=== PATIENT | female | born 1960 | race Hispanic/Latino ===

== ENCOUNTER 2018-10-18 08:52 | Emergency (ER) | payer OTHER ==
[2018-10-18 10:02] LABS: Absolute Lymphocytes (CBC) 2.1 K/uL (0.7-4.9); Basophils % 0.3 % (0-1.3); Eosinophils % 0.8 % (0-4.4); Hematocrit 42.2 % (36.0-45.0); Lymphocytes % 19.5 % (15.3-44.8); MPV 8.7 fL (7.6-11.3); Monocytes % 3.1 % (3.3-12.3); RBC Red Blood Cell Count 4.49 M/uL (3.86-4.86)
[2018-10-18] MEDS ORDERED: NA CHLORIDE 0.9% 1,000 ML ONE (10:03)
[2018-10-18 10:11] LABS: Protime INR 1.04
[2018-10-18 10:29] LABS: ALT/SGPT 43 U/L (12-78); AST/SGOT 48 U/L (15-37); Albumin 3.9 g/dL (3.4-5.0); Alkaline Phosphatase 118 U/L (45-117); BUN Blood Urea Nitrogen 11 mg/dL (7-18); Bicarbonate 23 mmol/L (21-32); Bilirubin Direct 0.3 mg/dL (0-0.2); Bilirubin Total 0.7 mg/dL (0.2-1.0); Glucose Level 107 mg/dL (74-106); Magnesium 2.4 mg/dL (1.8-2.4); NT PRO-BNP 11 pg/mL (<125); Potassium 3.9 mmol/L (3.5-5.1); Protein, Total 7.6 g/dL (6.4-8.2); Sodium Level 143 mmol/L (136-145); Troponin (Emerg Dept Use Only) < 0.02 ng/mL (0.0-0.045)
--- NOTE | 2018-10-18 10:54 | RAD REPORT ---
EXAM DESCRIPTION: CTAbdomen Pelvis W Contrast - 10/18/2018 10:44 am CLINICAL HISTORY: Abdominal pain. EPIGASTRIC PAIN COMPARISON: Abdomen Pelvis W Contrast dated 10/17/2018 TECHNIQUE: Biphasic CT imaging of the abdomen and pelvis was performed with 100 ml non-ionic IV cont rast. All CT scans are performed using dose optimization technique as appropriate and may include automated exposure control or mA/KV adjustment according to patient size. FINDINGS: Emphysematous changes are present in the lung bases. The liver, spleen, pancreas, adrenal glands and kidneys are within normal limits. Small stones are pr esent in the gallbladder. No bowel obstruction, free air, free fluid or abscess. Metallic clips in the right colon presumably r elated to recent intervention in this region. The appendix is not identified as a discrete structure, however, no secondary findings of appendicitis are identified. No evidence of significant lymphade nopathy. No suspicious bony findings. IMPRESSION: No acute intra-abdominal or pelvic finding.
--- NOTE | 2018-10-18 11:26 | RAD REPORT ---
EXAM DESCRIPTION: Kacey Single View10/18/2018 9:44 am CLINICAL HISTORY: Chest pain COMPARISON: October 17, 2017 FINDINGS: Lungs are hyperaerated. The lungs appear clear of acute infiltrate. The heart is normal size IMPRESSION: No acute abnormalities displayed
--- NOTE | 2018-10-18 13:52 | ER ---
Nurse's Notes [facility] Name: Carmencita Lomas Age: 58 yrs Sex: Female : 1960 Arrival Date: 10/18/2018 Time: 08:53 Bed 2 Private MD: Diagnosis: Chest pain, unspecified Presentation: 10/18 09:02 Presenting complaint: Patient states: Sent from Dr Bey's office for chest pain after ph EGD today, also reports having colonoscopy yesterday, c/o pain in epigastric area, describes as pressure 2/10, denies SOB or nausea. Transition of care: patient was not received from another setting of care. Onset of symptoms was October 18, 2018. Risk Assessment: Do you want to hurt yourself or someone else? Patient reports no desire to harm self or others. Initial Sepsis Screen: Does the patient meet any 2 criteria? No. Patient's initial sepsis screen is negative. Does the patient have a suspected source of infection? No. Patient's initial sepsis screen is negative. Care prior to arrival: IV initiated. 22 GA, in the right hand. 09:02 Method Of Arrival: Wheelchair ph 09:02 Acuity: RAMIRZE 3 ph Historical: - Allergies: 09:10 No Known Allergies; ph - PMHx: 09:10 Chronic pain; Fibromyalgia; ph - Immunization history:: Adult Immunizations. - Social history:: Smoking status: . - Ebola Screening: : Patient denies travel to an Ebola-affected area in the 21 days before illness onset. Screenin:57 Abuse screen: Denies threats or abuse. Nutritional screening: No deficits noted. tw2 Tuberculosis screening: No symptoms or risk factors identified. Fall Risk None identified. Assessment: 09:00 General: Appears in no apparent distress. Behavior is calm, cooperative, appropriate tw2 for age. Pain: Complains of pain in chest Pain does not radiate. Pain began 1 hour ago. Neuro: Level of Consciousness is awake, alert, obeys commands, Oriented to person, place, time, situation. Cardiovascular: Reports chest pain, Heart tones S1 S2 Patient's skin is warm and dry. Respiratory: Airway is patent Respiratory effort is even, unlabored, Breath sounds are clear bilaterally. GI: No signs and/or symptoms were reported involving the gastrointestinal system. : No signs and/or symptoms were reported regarding the genitourinary system. EENT: No signs and/or symptoms were reported regarding the EENT system. Derm: No signs and/or symptoms reported regarding the dermatologic system. Musculoskeletal: Range of motion: intact in all extremities. 10:14 Reassessment: Patient and/or family updated on plan of care and expected duration. Pain aj1 level reassessed. Patient states that she would like something to drink. Notified Sujata Martinez NP who said to keep patient NPO at this tiem. General: Appears in no apparent distress. comfortable, Behavior is calm, cooperative, appropriate for age. Pain: Denies pain. Neuro: Level of Consciousness is awake, alert, obeys commands, Oriented to person, place, time, situation. Cardiovascular: Reports chest pain, that has now resolved Heart tones S1 S2 present Patient's skin is warm and dry. Rhythm is sinus rhythm. Respiratory: Airway is patent Respiratory effort is even, unlabored, Respiratory pattern is regular, symmetrical, Breath sounds are clear bilaterally. GI: No signs and/or symptoms were reported involving the gastrointestinal system. : No signs and/or symptoms were reported regarding the genitourinary system. EENT: No signs and/or symptoms were reported regarding the EENT system. Derm: No signs and/or symptoms reported regarding the dermatologic system. Skin is pink, warm \T\ dry. normal. Musculoskeletal: No signs and/or symptoms reported regarding the musculoskeletal system. Circulation, motion, and sensation intact. 11:15 Reassessment: Patient appears in no apparent distress at this time. No changes from aj1 previously documented assessment. Patient and/or family updated on plan of care and expected duration. Pain level reassessed. Patient is alert, oriented x 3, equal unlabored respirations, skin warm/dry/pink. 12:18 Reassessment: Patient appears in no apparent distress at this time. No changes from aj1 previously documented assessment. Patient and/or family updated on plan of care and expected duration. Pain level reassessed. Patient is alert, oriented x 3, equal unlabored respirations, skin warm/dry/pink. 12:38 Reassessment: Patient reports that she is hungry and needs something to eat because she aj1 hasn't eaten anything solid in the past 3 days. Patient was provided a turkey sandwich. 13:05 Reassessment: Patient appears in no apparent distress at this time. No changes from aj1 previously documented assessment. Patient and/or family updated on plan of care and expected duration. Pain level reassessed. Patient is alert, oriented x 3, equal unlabored respirations, skin warm/dry/pink. Patient's repeat labs drawn by RUSTY Bertrand. 14:12 Reassessment: Patient appears in no apparent distress at this time. No changes from aj1 previously documented assessment. Patient and/or family updated on plan of care and expected duration. Pain level reassessed. Patient is alert, oriented x 3, equal unlabored respirations, skin warm/dry/pink. Vital Signs: 09:04 BP 112 / 73; Pulse 78; Resp 18; Pulse Ox 93% on R/A; Weight 66.22 kg; Height 5 ft. 4 ph in. (162.56 cm); Pain 2/10; 10:00 Pulse Ox 89% on R/A; tw2 10:15 BP 104 / 51; Pulse 68; Resp 18; Pulse Ox 99% on 2 lpm NC; aj1 11:15 BP 109 / 67; Pulse 67; Resp 18; Pulse Ox 95% on 2 lpm NC; aj1 12:19 BP 107 / 68; Pulse 71; Resp 18; Pulse Ox 96% on 2 lpm NC; aj1 13:36 BP 109 / 69; Pulse 69; Resp 16; Pulse Ox 98% on 2 lpm NC; aj1 14:13 BP 105 / 62; Pulse 88; Resp 18; Pulse Ox 97% on R/A; aj1 09:04 Body Mass Index 25.06 (66.22 kg, 162.56 cm) ph 10:00 pt placed on 2 l nc at this time. tw2 ED Course: 08:53 Patient arrived in ED. rg4 08:56 Tova Mendiola, GABRIEL is Primary Nurse. tw2 08:57 Placed in gown. Bed in low position. monitor technician on. Pulse ox on. NIBP on. tw2 08:57 Arm band placed on. tw2 09:04 Triage completed. ph 09:06 Jose Antonio Martinez NP is PHCP. pm1 09:06 Rishabh Perez MD is Attending Physician. pm1 09:38 X-ray completed. Portable x-ray completed in exam room. Patient tolerated procedure jb2 well. 09:39 XRAY Chest (1 view) In Process Unspecified. EDMS 10:00 Oxygen administration via nasal cannula \T\ 2L/min. tw2 10:01 Report given to GABRIEL Fitzgerald. tw2 10:44 CT Abd/Pelvis - IV Contrast Only In Process Unspecified. EDMS 10:[address] via stretcher. jg6 13:14 Repeat lab(s) drawn. by mt, sent to lab. jp3 13:14 Troponin (emerg Dept Use Only) Sent. jp3 14:13 No provider procedures requiring assistance completed. IV discontinued, intact, aj1 bleeding controlled, No redness/swelling at site. Pressure dressing applied. Administered Medications: 09:57 Drug: NS 0.9% 1000 ml Route: IV; Rate: 1000 ml; Site: right hand; ph 14:15 Follow up: IV Status: Infusion continued upon admission tw2 Outcome: 13:51 Discharge ordered by MD. pm1 14:13 Discharged to home ambulatory. aj1 14:13 Condition: good 14:13 Discharge instructions given to patient, Instructed on discharge instructions, follow up and referral plans. Demonstrated understanding of instructions, follow-up care. 14:13 Patient left the ED. aj1 Signatures: Dispatcher [employer] EDMS Ladonna Delgado RN RN aj1 Lawrence Dwyer jbLiss Kaiser RN RN Jose Antonio Khoury, DARA CHEMIST ASSISTANT pm1 Tova Mendiola RN RN tw2 Kirsten Case rg4 Rojelio Morrison jp3 Rossi Case jg6 Corrections: (The following items were deleted from the chart) 10:15 10:15 BP 104 / 51; Pulse 68bpm; Resp 18bpm; Pulse Ox 99% RA; aj1 aj1
--- NOTE | 2018-10-18 13:52 | EDPHYS ---
Physician Documentation [facility] Name: Carmencita Lomas Age: 58 yrs Sex: Female : 1960 Arrival Date: 10/18/2018 Time: 08:53 Bed 2 Private MD: ED Physician Rishabh Perez HPI: 10/18 10:11 This 58 yrs old Female presents to ER via Wheelchair with complaints of Chest pm1 Pain. 10:11 The patient or guardian reports chest pain that is located primarily in the epigastric pm1 area. Onset: this morning, 1 hour prior to arrival. The pain does not radiate. Associated signs and symptoms: Pertinent positives: abdominal pain, Pertinent negatives: cough, diaphoresis, dizziness, headache, nausea, shortness of breath, vomiting. The chest pain is described as Gassy/Bloating sensation. Duration: The patient or guardian reports a single episode, that is now resolved. Modifying factors: The symptoms are alleviated by nothing. the symptoms are aggravated by nothing. Severity of pain: in the emergency department the pain has resolved. The patient has not experienced similar symptoms in the past. The patient has been recently seen by a physician: Dr. Bey Patient with EGD this AM and had colonoscopy yesterday. Historical: - Allergies: 09:10 No Known Allergies; ph - PMHx: 09:10 Chronic pain; Fibromyalgia; ph - Immunization history:: Adult Immunizations. - Social history:: Smoking status: . - Ebola Screening: : Patient denies travel to an Ebola-affected area in the 21 days before illness onset. ROS: 10:11 Constitutional: Negative for fever, chills, and weight loss, Eyes: Negative for injury, pm1 pain, redness, and discharge, ENT: Negative for injury, pain, and discharge, Neck: Negative for injury, pain, and swelling, Respiratory: Negative for shortness of breath, cough, wheezing, and pleuritic chest pain. 10:11 Abdomen/GI: Negative for abdominal pain, nausea, vomiting, diarrhea, and constipation, Back: Negative for injury and pain, : Negative for injury, bleeding, discharge, and swelling, MS/Extremity: Negative for injury and deformity, Skin: Negative for injury, rash, and discoloration, Neuro: Negative for headache, weakness, numbness, tingling, and seizure. 10:11 Cardiovascular: Positive for chest pain, Negative for edema, orthopnea, palpitations. Exam: 10:11 Constitutional: This is a well developed, well nourished patient who is awake, alert, pm1 and in no acute distress. Head/Face: Normocephalic, atraumatic. Eyes: Pupils equal round and reactive to light, extra-ocular motions intact. Lids and lashes normal. Conjunctiva and sclera are non-icteric and not injected. Cornea within normal limits. Periorbital areas with no swelling, redness, or edema. ENT: Nares patent. No nasal discharge, no septal abnormalities noted. Tympanic membranes are normal and external auditory canals are clear. Oropharynx with no redness, swelling, or masses, exudates, or evidence of obstruction, uvula midline. Mucous membranes moist. Neck: Trachea midline, no thyromegaly or masses palpated, and no cervical lymphadenopathy. Supple, full range of motion without nuchal rigidity, or vertebral point tenderness. No Meningismus. Chest/axilla: Normal chest wall appearance and motion. Nontender with no deformity. No lesions are appreciated. Cardiovascular: Regular rate and rhythm with a normal S1 and S2. No gallops, murmurs, or rubs. Normal PMI, no JVD. No pulse deficits. Respiratory: Lungs have equal breath sounds bilaterally, clear to auscultation and percussion. No rales, rhonchi or wheezes noted. No increased work of breathing, no retractions or nasal flaring. Abdomen/GI: Soft, non-tender, with normal bowel sounds. No distension or tympany. No guarding or rebound. No evidence of tenderness throughout. Back: No spinal tenderness. No costovertebral tenderness. Full range of motion. Skin: Warm, dry with normal turgor. Normal color with no rashes, no lesions, and no evidence of cellulitis. MS/ Extremity: Pulses equal, no cyanosis. Neurovascular intact. Full, normal range of motion. 10:11 Neuro: Orientation: is normal, Motor: is normal. Vital Signs: 09:04 BP 112 / 73; Pulse 78; Resp 18; Pulse Ox 93% on R/A; Weight 66.22 kg; Height 5 ft. 4 ph in. (162.56 cm); Pain 2/10; 10:00 Pulse Ox 89% on R/A; tw2 10:15 BP 104 / 51; Pulse 68; Resp 18; Pulse Ox 99% on 2 lpm NC; aj1 11:15 BP 109 / 67; Pulse 67; Resp 18; Pulse Ox 95% on 2 lpm NC; aj1 12:19 BP 107 / 68; Pulse 71; Resp 18; Pulse Ox 96% on 2 lpm NC; aj1 13:36 BP 109 / 69; Pulse 69; Resp 16; Pulse Ox 98% on 2 lpm NC; aj1 14:13 BP 105 / 62; Pulse 88; Resp 18; Pulse Ox 97% on R/A; aj1 09:04 Body Mass Index 25.06 (66.22 kg, 162.56 cm) ph 10:00 pt placed on 2 l nc at this time. tw2 MDM: 09:16 Patient medically screened. pm1 09:16 Data reviewed: vital signs. pm1 11:11 Counseling: I had a detailed discussion with the patient and/or guardian regarding: lab pm1 results, radiology results, Informed patient will repeat troponin at 1300. Patient's chest pain onset 1 hour prior to ER arrival. 13:50 Counseling: I had a detailed discussion with the patient and/or guardian regarding: the pm1 historical points, exam findings, and any diagnostic results supporting the discharge/admit diagnosis, lab results, the need for outpatient follow up, to return to the emergency department if symptoms worsen or persist or if there are any questions or concerns that arise at home. 10/18 09:18 Order name: Basic Metabolic Panel; Complete Time: 10:59 pm10/18 09:18 Order name: CBC with Diff; Complete Time: 10:06 pm10/18 09:18 Order name: LFT's; Complete Time: 10:59 pm10/18 09:18 Order name: Magnesium; Complete Time: 10:59 pm10/18 09:18 Order name: NT PRO-BNP; Complete Time: 10:59 pm10/18 09:18 Order name: PT-INR; Complete Time: 10:59 pm10/18 09:18 Order name: Troponin (emerg Dept Use Only); Complete Time: 10:59 pm10/18 09:18 Order name: XRAY Chest (1 view); Complete Time: 11:50 pm1 10/18 09:18 Order name: EKG; Complete Time: 09:20 pm1 10/18 09:18 Order name: Cardiac monitoring; Complete Time: 09:38 pm1 10/18 09:18 Order name: EKG - Nurse/Tech; Complete Time: 09:38 pm1 10/18 09:18 Order name: CT Abd/Pelvis - IV Contrast Only; Complete Time: 11:07 pm1 10/18 13:03 Order name: Troponin (emerg Dept Use Only); Complete Time: 13:50 dm5 10/18 09:18 Order name: IV Saline Lock; Complete Time: 09:38 pm1 10/18 09:18 Order name: Labs collected and sent; Complete Time: 09:38 pm1 10/18 09:18 Order name: O2 Per Protocol; Complete Time: :38 pm10/18 09:18 Order name: O2 Sat Monitoring; Complete Time: :38 pm1 EC:11 Rate is 78 beats/min. Rhythm is regular. No Q waves. T waves are Normal. No ST changes pm1 noted. Clinical impression: Normal ECG. Administered Medications: 09:57 Drug: NS 0.9% 1000 ml Route: IV; Rate: 1000 ml; Site: right hand; ph 14:15 Follow up: IV Status: Infusion continued upon admission tw2 Disposition: 10/18/18 13:51 Discharged to Home. Impression: Chest pain, unspecified. - Condition is Stable. - Discharge Instructions: Nonspecific Chest Pain. - Medication Reconciliation Form, Thank You Letter, Antibiotic Education, Prescription Opioid Use form. - Follow up: Emergency Department; When: As needed; Reason: Worsening of condition. Follow up: Private Physician; When: 2 - 3 days; Reason: Recheck today's complaints, Continuance of care, Re-evaluation by your physician. - Problem is new. - Symptoms have improved. Addendum: 10/19/2018 18:30 Co-signature as Attending Physician, Rishabh Perez MD. g s Signatures: Dispatcher [employer] EDLadonna Senior RN RN aj1 Liss Roberts RN RN ph Jose Antonio Martinez, DARA COMPUTATIONAL SCIENTIST pm1 Tova Mendiola RN RN tw2 Rishahb Perez MD MD Corrections: (The following items were deleted from the chart) 10/18 14:13 13:51 10/18/2018 13:51 Discharged to Home. Impression: Chest pain, unspecified. aj1 Condition is Stable. Forms are Medication Reconciliation Form, Thank You Letter, Antibiotic Education, Prescription Opioid Use. Follow up: Emergency Department; When: As needed; Reason: Worsening of condition. Follow up: Private Physician; When: 2 - 3 days; Reason: Recheck today's complaints, Continuance of care, Re-evaluation by your physician. Problem is new. Symptoms have improved. pm1
--- NOTE | 2018-10-18 15:37 | EKG ---
Test Date: 2018-10-18 Test Time: 09:01:29 Radio Artist: ABDOUL MEASUREMENT RESULTS: Intervals: Rate: 78 MT: 170 QRSD: 82 QT: 398 QTc: 453 [place]: P: 63 MT: 170 QRS: 24 T: 46 INTERPRETIVE STATEMENTS: Normal sinus rhythm Normal ECG No previous ECG available for comparison Electronically Signed On 10-18-18 15:35:23 CDT by Husam Prado
== END 2018-10-18 14:13 | disposition home or self-care (01) ==
LOC: ER 08:52
DX: R07.9 Chest pain, unspecified (principal)
CPT/HCPCS: 36415; 71045; 74177; 80048; 80076; 83735; 83880; 84484; 85025; 85610; 93005; 96360; 96361; 99285; J7030; Q9967